=== PATIENT | female | born 1980 | race African-American/Black ===

== ENCOUNTER 2023-12-11 14:40 | Emergency (ER) | payer OTHER ==
[~2023-12-11] VITALS: Ht 167.6 cm; Wt 95.3 kg
[2023-12-11] MEDS ORDERED: FAMOTIDINE (20 MG) 20 MG TABLET PO ONE (15:30)
[2023-12-11] MEDS ORDERED: MAG HYDROX/AL HYDROX/SIMETH 30 ML UDC PO ONE (15:30)
[2023-12-11] MEDS ORDERED: MAG HYDROX/AL HYDROX/SIMETH 30 ML UDC ONE (15:34)
[2023-12-11] MEDS ORDERED: FAMOTIDINE (20 MG) 20 MG TABLET ONE (15:35)
[2023-12-11 15:40] LABS: BASOPHILS # (AUTO) 0.1 K/uL (0.0-0.2); BASOPHILS % (AUTO) 0.8 % (0.0-2.0); EOSINOPHILS % (AUTO) 0.8 % (0.0-6.0); HEMATOCRIT 34 % (33-45); LYMPHOCYTES # (AUTO) 2.2 K/uL (0.8-4.8); LYMPHOCYTES % (AUTO) 36.7 % (20.0-44.0); MEAN CORPUSCULAR HEMOGLOBIN 23 PG (26.0-33.0); MEAN CORPUSCULAR HGB CONC 32 g/dl (31.0-36.0); MEAN CORPUSCULAR VOLUME 70 fL (82-100); MONOCYTES # (AUTO) 0.5 K/uL (0.1-1.30); MONOCYTES % (AUTO) 8.2 % (2.0-12.0); NEUTROPHILS # (AUTO) 3.2 K/uL (1.8-8.9); NEUTROPHILS % (AUTO) 53.5 % (43.0-81.0); PLATELET COUNT (AUTO) 367 K/uL (150-450); RED BLOOD CELL COUNT(AUTO) 4.89 MIL/uL (4.0-5.2); RED CELL DISTRIBUTION WIDTH 15.5 % (11.5-15.0)
[2023-12-11 15:52] LABS: CALCIUM, SERUM 9.7 mg/dL (8.5-10.1); CARBON DIOXIDE 27 mmol/L (21-32); CHLORIDE 100 mmol/L (98-107); CREATININE 0.9 mg/dL (0.6-1.3); GLUCOSE 88 mg/dL (74-106); POTASSIUM 3.5 mmol/L (3.5-5.1); SODIUM SERUM 135 mmol/L (136-145); UREA NITROGEN, BLOOD 9 mg/dL (7-18)
[2023-12-11 16:02] LABS: PREGNANCY TEST URINE QUAL NEGATIVE (NEGATIVE)
[2023-12-11 16:16] LABS: NT-PRO BNP 25 pg/mL (0-125)
[2023-12-11 16:22] LABS: THYROID STIMULATING HORMONE 1.112 uIU/mL (0.358-3.74)
[2023-12-11] MEDS ORDERED: HYDR-500 PO (17:00)
[2023-12-11] MEDS ORDERED: SUCR1TAB31 PO (17:00)
[2023-12-11 17:47] VITALS: BP 145/88; TEMP 98.3; O2SAT 100
[2023-12-11 17:53] LABS: ALANINE AMINOTRANSFERASE 19 U/L (12-78); ALBUMIN 3.8 g/dL (3.4-5.0); ALCOHOL, BLOOD < 3 mg/dL (0-10); ALKALINE PHOSPHATASE 52 U/L (46-116); ASPARTATE AMINOTRANSFERASE 18 U/L (15-37); BILIRUBIN,DIRECT 0.1 mg/dL (0.0-0.2); BILIRUBIN,TOTAL 0.3 mg/dL (0.2-1.0); TOTAL PROTEIN, SERUM 8.1 g/dL (6.4-8.2)
[2023-12-11 17:57] LABS: ACETAMINOPHEN 0 ug/ml (10-30); SALICYLATE 0.8 mg/dL (2.8-20.0)
[2023-12-11 17:58] LABS: AMPHETAMINE, URINE NEGATIVE (NEGATIVE); BARBITURATE, URINE NEGATIVE (NEGATIVE); BENZODIAZEPINE, URINE NEGATIVE (NEGATIVE); CANNABINOID, URINE NEGATIVE (NEGATIVE); COCCAINE, URINE NEGATIVE (NEGATIVE); OPIATE, URINE NEGATIVE (NEGATIVE); PHENCYCLIDINE SCREEN,URINE NEGATIVE (NEGATIVE)
== END 2023-12-11 17:48 | disposition home or self-care (01) ==
LOC: ER 14:40
DX: R07.9 Chest pain, unspecified (principal); K21.9 Gastro-esophageal reflux disease without esophagitis; F41.9 Anxiety disorder, unspecified; Z20.822 Contact with and (suspected) exposure to COVID-19
CPT/HCPCS: 36415; 71045-TC; 80048-TC; 80076-TC; 83735-TC; 83880; 84443-TC; 84484-TC; 84703-TC; 85025-TC; G0480

== ENCOUNTER 2024-06-07 17:46 | Emergency (ER) | payer OTHER ==
[~2024-06-07] VITALS: Ht 167.6 cm; Wt 94.3 kg
[~2024-06-07 17:46] MED LIST: HYDR-500 PO; SUCR1TAB31 PO
[2024-06-07] MEDS ORDERED: KETOROLAC TROMETHAMINE INJ 30 MG/ML VIAL ONE (18:55)
[2024-06-07] MEDS ORDERED: BACLOFEN (10 MG) 10 MG TABLET ONE (18:55)
[2024-06-07] MEDS: BACLOFEN (10 MG) 10 MG TABLET PO ONE (19:01)
[2024-06-07] MEDS: KETOROLAC TROMETHAMINE INJ 30 MG/ML VIAL IM ONE (19:01)
[2024-06-07] MEDS ORDERED: BACL10TA PO (20:01)
[2024-06-07] MEDS ORDERED: KETO10TA2 PO (20:01)
[2024-06-07 20:12] VITALS: BP 120/76; TEMP 98; O2SAT 98
== END 2024-06-07 20:12 | disposition home or self-care (01) ==
LOC: ER 18:02
DX: S16.1XXA Strain of muscle, fascia and tendon at neck level, initial encounter (principal); K21.9 Gastro-esophageal reflux disease without esophagitis; X58.XXXA Exposure to other specified factors, initial encounter; Y93.89 Activity, other specified; Y92.89 Other specified places as the place of occurrence of the external cause; Y99.8 Other external cause status
CPT/HCPCS: 99283; 96372; J1885